=== PATIENT | male | born 1970 | race Caucasian/White ===

== ENCOUNTER → 2019-07-11 | Outpatient (CLI) | payer OTHER ==
[~2019-07-11] VITALS: Ht 188 cm; Wt 111.1 kg
--- NOTE | ~2019-07-11 | HPC ---
[facility] [address] [address] PAIN MANAGEMENT CONSULTATION Name: VERENA MARKS [id number] Admission: 07/11/19 Attend Phys: Mesfin Carvalho MD Discharge: Date of : 72 Report #: [id number] THIS REPORT FOR: //name// CC: NELSON Carvalho DATE OF SERVICE: 07/11/2019 CHIEF COMPLAINT: Low back pain with radiation into the left calf. HISTORY OF PRESENT ILLNESS: The patient is a pleasant 49-year-old who is here today at the request of Dr. Robles. He does not like doctors and has taken a long time to get here. He has been having pain in his back and his left buttock since August. 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 He noticed a sudden onset of pain shortly thereafter. He has tried a chiropractor with little benefit. He now presents with a constant, sharp, deep aching pain, burning and tingling that radiates into his buttock with sitting. It is alleviated with rest, stretching and repositioning. He is taking no medications at this time. ALLERGIES: None. PAST MEDICAL HISTORY: Unremarkable. He has been in excellent health. He has had some arthropathy involving shoulders and had shoulder surgery in 2012 and 2013. SOCIAL HISTORY: Denies use of tobacco, drinks alcohol on 1 or 2 occasions during the week. 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 REVIEW OF SYSTEMS: Negative. PHYSICAL EXAMINATION: GENERAL: The patient is a very healthy appearing 49-year-old moves easily from sitting to standing position. Gait is mildly antalgic. VITAL SIGNS: He is 6 feet 2 inches, weight 245 pounds, BMI 31.4, blood pressure 118/69, heart rate 60, respirations 16, O2 sat 98%. Pain intensity 3/10. NEUROLOGIC: Range of motion of the lumbar spine is excellent. Straight leg raising is mildly uncomfortable in the left sacroiliac region. There is no numbness or tingling. Deep tendon reflexes are 2+ at knees and 1+ at ankles. No sensory loss. [facility] [address] [place] [address] PAIN MANAGEMENT CONSULTATION Name: VERENA MARKS [facility] [id number] Admission: 07/11/19 Attend Phys: Mesfin Carvalho MD Discharge: Date of : 72 Report #: [id number] MRI scan is reviewed and it shows that there is a protrusion of the L4-L5 disk; however, is contralateral to his symptoms. IMPRESSION: I think he has discogenic pain with some evidence of radiculopathy. His numbness and tingling as well as pain radiating into the calf consistent with increases in his back pain. He has tried conservative management. RECOMMENDATIONS: 1. Physical therapy, we will initiate this, although he is quite fit and is routinely obtaining functional exercise. I do think that guided exercise with the therapist will be helpful. 2. It has gone on long enough that I think an epidural steroid injection should be helpful. Preauthorization was sought during that time when he was in the clinic. There was some uncertainty about his insurance because he has [facility], which often times does not allow for injection on same day. He was discharged with scheduled appointment for next Monday after we received authorization. We wanted to ensure that we had coverage. After he left the office, Martha our data analytics chief scientist spent nearly 45 minutes and felt that perhaps he could have had an injection on the same day. We will notify him of the inconvenience. These are the trouble that we face with today's insurance, which is confusing for all even the specialists who seek to preauthorize these procedures for us. By: [id number] Mesfin Carvalho MD /nt
[2019-07-11 14:35] VITALS: BP 118/69
--- NOTE | 2019-07-11 15:10 | NUR ---
Pain Clinic Assessment: 1. History of Osteoarthritis: Left Upper Extremity Right Upper Extremity History of Rheumatoid Arthritis: Not Applicable 2. Height: 6 ft. 2 in. 188.0 cm. Weight: 245.0 lb. oz. 111.132 kg. Patient's BMI: 31.4 3. Vital Signs: BP: 118/69 Pulse: 60 Resp: 16 Temp: 02 Sat: 98 ECG Mon: 4. Pain Intensity: 3 5. Fall Risk: Dizziness: N Needs help standing or walking: N Fallen in the last 3 months: N Fall risk comments: 6. Patient on Blood Thinner: None 7. History of Hypertension: N 8. Opioid Therapy greater than 6 weeks: N Opiate Contract Signed: 9. Risk Assessment Tool Provided: 10. Functional Assessment Tool: 57 11. Recreational Drug Use: Never Drug Type: Tobacco Use: Never Smoker Tobacco Type: Amount or Packs/day: How Many Years: Alcohol Use: Yes Frequency: Weekly Quant: 1-2
== END ==
LOC: PAIN 08:50
DX: M54.16 Radiculopathy, lumbar region (principal)

== ENCOUNTER → 2019-07-16 | Outpatient (CLI) | payer OTHER ==
[~2019-07-16] VITALS: Ht 188 cm; Wt 111.1 kg
--- NOTE | ~2019-07-16 | HPC ---
[address] [place] [address] PAIN MANAGEMENT CONSULTATION Name: SELINAVERENA Room #: REG CL [facility].#: [id number] Admission: 07/16/19 Attend Phys: Mesfin Carvalho MD Discharge: Date of : 72 Report #: [id number] THIS REPORT FOR: //name// CC: Arnav Carvalho DATE OF SERVICE: 07/16/2019 Followup visit for low back pain with radiculopathy. The patient returns today for an epidural injection. We have received preauthorization to go forward from [facility]. I discussed the procedure, potential risks and benefits. He has signed an informed consent and is ready to go. I will also give him a consultation for physical therapy as discussed at last visit. Hopefully, the reduction in pain will allow him to do well with that. PROCEDURE: Epidural steroid injection under fluoroscopic guidance, L4-L5. He was taken to the fluoroscopic suite and placed prone. It appears that there is a sacralization of L5. Some degeneration of the lowest disk. He was taken to fluoroscopic suite for the treatment. PROCEDURE: He was placed prone. Skin was prepped with ChloraPrep. Skin was anesthetized over the L4-L5 interspace. A 20-gauge Tuohy epidural needle was advanced at first attempt into the epidural space in midline. There was no blood or CSF aspirated. A 1 mL of Omnipaque injected. Good spread of dye observed in the epidural space followed by 3 mL of 0.5% lidocaine followed by 10 mg of dexamethasone. He tolerated the procedure well and was observed for 45 minutes and discharged. Followup visit planned in a month. By: [id number] Mesfin Carvalho MD /nt
[2019-07-16 10:58] VITALS: BP 130/76
--- NOTE | 2019-07-16 11:03 | NUR ---
Pain Clinic Assessment: 1. History of Osteoarthritis: Left Upper Extremity Right Upper Extremity History of Rheumatoid Arthritis: Not Applicable 2. Height: 6 ft. 2 in. 188.0 cm. Weight: 245.0 lb. oz. 111.132 kg. Patient's BMI: 31.4 3. Vital Signs: BP: 130/76 Pulse: 67 Resp: 16 Temp: 02 Sat: 98 ECG Mon: 4. Pain Intensity: 2-3 5. Fall Risk: Dizziness: N Needs help standing or walking: N Fallen in the last 3 months: N Fall risk comments: 6. Patient on Blood Thinner: None 7. History of Hypertension: N 8. Opioid Therapy greater than 6 weeks: N Opiate Contract Signed: 9. Risk Assessment Tool Provided: 10. Functional Assessment Tool: 11. Recreational Drug Use: Never Drug Type: Tobacco Use: Never Smoker Tobacco Type: Amount or Packs/day: How Many Years: Alcohol Use: Yes Frequency: Quant:
== END | disposition home or self-care (01) ==
LOC: PAIN 07:02
DX: M54.16 Radiculopathy, lumbar region (principal); G89.29 Other chronic pain

== ENCOUNTER → 2021-01-28 | Outpatient (CLI) | payer OTHER | LOC: SJCVCIMAG 08:08 | PROVIDERS: ATTEND Internal Medicine | DX: R00.0 Tachycardia, unspecified (principal); R07.89 Other chest pain; E78.5 Hyperlipidemia, unspecified; R53.83 Other fatigue; Z86.16 Personal history of COVID-19; Z82.49 Family history of ischemic heart disease and other diseases of the circulatory system ==